=== PATIENT | male | born 1990 | race Caucasian/White ===

== ENCOUNTER 2017-12-31 10:33 | Emergency (ER) | payer OTHER ==
[~2017-12-31] VITALS: Ht 170.2 cm; Wt 80.5 kg
[2017-12-31 10:56] VITALS: BP 138/75
--- NOTE | 2017-12-31 11:03 | NUR ---
patient to bed #2
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
[2017-12-31] MEDS ORDERED: KETOROLAC 60 MG/2 ML VIAL IM ONE (11:50)
[2017-12-31 12:42] VITALS: BP 142/70
== END 2017-12-31 12:43 | disposition home or self-care (01) ==
LOC: MED 10:33
DX: S20.212A Contusion of left front wall of thorax, initial encounter (principal); H11.31 Conjunctival hemorrhage, right eye; R03.0 Elevated blood-pressure reading, without diagnosis of hypertension; Y04.2XXA Assault by strike against or bumped into by another person, initial encounter; Y93.89 Activity, other specified; Y92.89 Other specified places as the place of occurrence of the external cause; Y99.8 Other external cause status
CPT/HCPCS: 70450; 71045; 96372; 99284; J1885